=== PATIENT | female | born 1965 | race Caucasian/White ===

== ENCOUNTER 2021-05-20 12:44 | Emergency (ER) | payer OTHER ==
[~2021-05-20] VITALS: Ht 160 cm; Wt 90.7 kg
[2021-05-20] MEDS ORDERED: PREDNISONE 20 M20 MG PO (13:28)
[2021-05-20] MEDS ORDERED: PROAIR HFA8.5 GM INH (13:28)
[2021-05-20] MEDS ORDERED: TESSALON PERLE100 MG PO (13:28)
[2021-05-20] MEDS ORDERED: APAP W/CODEINE1 TA2 PO (13:28)
[2021-05-20 13:35] VITALS: BP 184/87
== END 2021-05-20 13:35 | disposition home or self-care (01) ==
LOC: M.ERS 12:44
DX: J20.9 Acute bronchitis, unspecified (principal); Z20.822 Contact with and (suspected) exposure to COVID-19; E11.9 Type 2 diabetes mellitus without complications; F17.210 Nicotine dependence, cigarettes, uncomplicated

== ENCOUNTER 2021-07-12 13:26 | Inpatient (IN) | payer OTHER ==
[~2021-07-12] VITALS: Ht 160 cm; Wt 86.2 kg
[~2021-07-12 13:26] MED LIST: APAP W/CODEINE1 TA2 PO; PREDNISONE 20 M20 MG PO; PROAIR HFA8.5 GM INH; TESSALON PERLE100 MG PO
[2021-07-12 13:33] VITALS: BP 153/85
[2021-07-12 14:03] LABS: INFLUENZA A ANTIGEN Negative (Negative); INFLUENZA B ANTIGEN Negative (Negative)
--- NOTE | 2021-07-12 16:12 | EKG ---
[place] [address] ELECTROCARDIOGRAM REPORT Name: ABDULAZIZ NARVAEZ Room: [facility] [employer]#: [id number] Admission: 07/12/21 Attend Phys: Discharge: Date of : 69 Date of Service: 07/12/21 1332 Report #: [id number] THIS REPORT FOR: //name// [facility] ED Test Date: 2021-07-12 Test Time: 13:32:56 Pat Name: ABDULAZIZ NARVAEZ Department: Room: Gender: [employer]: [facility] : 1965 Requested By: Kira Vasques Order Number: [id number] MD: Torey Stone Measurements Intervals [place] Rate: 82 P: 51 [place]: 138 QRS: 37 QRSD: 86 T: 64 QT: 360 QTc: 421 Interpretive Statements Sinus rhythm Low voltage, precordial leads No previous ECG available for comparison Electronically Signed On 07-12-2021 16:12:04 MONOTYPER by Torey Stone [email or web address] <ELECTRONICALLY SIGNED> By: Torey Stone MD, [facility] 07/12/21 1612 31 31 Torey Stone MD, FACC /EPI
[2021-07-12 17:04] LABS: URINE BILIRUBIN NEGATIVE (Negative); URINE BLOOD 1+ (Negative); URINE COLOR YELLOW; URINE GLUCOSE-RANDOM 3+ (Negative); URINE KETONES 2+ (Negative); URINE LEUKOCYTES-REFLEX NEGATIVE (Negative); URINE NITRITE-REFLEX NEGATIVE (Negative); URINE PROTEIN NEGATIVE (Negative); URINE UROBILINOGEN 0.2 E.U./dl (0.2-1.0)
[2021-07-12 17:05] LABS: URINE CLARITY HAZY
[2021-07-12 17:24] LABS: SQUAMOUS 0-3 Few /LPF (0-3)
[2021-07-12 17:25] LABS: BACTERIA-REFLEX None Seen /HPF (None Seen); CASTS None Seen /LPF (None Seen); CRYSTALS None Seen /LPF (None Seen); URINE RBC None Seen /HPF (0-2); URINE WBC-REFLEX 0-5 Rare /HPF (0-5)
[2021-07-12 17:58] LABS: HEMATOCRIT 43.8 % (37.0-47.0); HEMOGLOBIN 14.5 gm/dL (12.0-15.0); MCH 29.8 pg (26.0-34.0); MCHC 33.1 g/dL (28.0-37.0); MCV 89.9 fL (80.0-100.0); MPV 9.1 fl. (7.2-11.1); NUCLEATED RBCS 0 /100WBC; PLATELET COUNT* 287 thou/uL (150-400); RBC 4.88 mil/uL (4.20-5.00); RDW-CV 13.8 % (10.5-14.5); WBC 20.3 thou/uL (4.0-11.0)
[2021-07-12 18:09] LABS: CALCIUM 9.3 mg/dL (8.5-10.1); CREATININE 0.6 mg/dL (0.6-1.3)
[2021-07-12 18:13] LABS: ALBUMIN 2.9 g/dL (3.4-5.0); TOTAL BILIRUBIN 0.6 mg/dL (<0.1-1.0); TOTAL PROTEIN 7.4 g/dL (6.4-8.2)
[2021-07-12 18:15] LABS: POTASSIUM 4.5 mmol/L (3.5-5.1)
[2021-07-12 18:36] LABS: ABSOLUTE LYMPHOCYTES 1.6 thou/uL (0.8-5.3); ABSOLUTE MONOCYTES 0.4 thou/uL (0.0-1.2); ABSOLUTE NEUTROPHILS 18.3 thou/uL (1.6-8.1); PLATELET ESTIMATE ADEQUATE
[2021-07-12 20:42] LABS: PCO2 VENOUS 45.6 mmHg (41.0-51.0); PO2 VENOUS 40.2 mmHg (35.0-45.0)
[2021-07-13] VITALS (7 sets, daily range): BP systolic 128–178; BP diastolic 52–85
[2021-07-14] VITALS: BP 149/78
[2021-07-14 04:00] VITALS: BP 169/57
[2021-07-14 08:30] VITALS: BP 124/52
[2021-07-14 12:00] VITALS: BP 144/64
[2021-07-14] MEDS ORDERED: VITAMIN D325 MC2 PO (14:26)
[2021-07-14] MEDS ORDERED: VITAMIN C1000 MG PO (14:26)
[2021-07-14] MEDS ORDERED: PROTONIX40 M2 PO (14:26)
[2021-07-14] MEDS ORDERED: LANTUS SUBQ (14:28)
[2021-07-14] MEDS ORDERED: GLIPIZIDE5 MG PO (14:28)
[2021-07-14] MEDS ORDERED: INSULIN PEN NE1 EAC1 SUBQ (14:28)
[2021-07-14] MEDS ORDERED: NEURONTIN 300M300 M2 PO (14:29)
[2021-07-14 17:54] VITALS: BP 144/64
== END 2021-07-14 18:20 | disposition home or self-care (01) | DRG 391 ==
LOC: M.ERS 13:26 → M.TBA-ER 19:51 → M.2W 07-13 03:51
PROVIDERS: Physician Assistant; ADMIT Internal Medicine; ATTEND Internal Medicine
DX: K29.70 Gastritis, unspecified, without bleeding (principal); J18.9 Pneumonia, unspecified organism; E11.9 Type 2 diabetes mellitus without complications; F17.210 Nicotine dependence, cigarettes, uncomplicated; K59.00 Constipation, unspecified; F41.9 Anxiety disorder, unspecified; K21.9 Gastro-esophageal reflux disease without esophagitis; Z20.822 Contact with and (suspected) exposure to COVID-19